=== PATIENT | male | born 1975 | race Caucasian/White ===

== ENCOUNTER 2017-03-17 00:51 | Emergency (ER) | payer BC ==
--- NOTE | 2017-03-17 01:05 | Emergency Department Record ---
History of Present Illness - General Chief Complaint: Fall Injury Stated Complaint: FELL DISLOCATED SHOULDER Source: Patient Mode of Arrival: Ambulatory Limitations: No limitations - History of Present Illness Initial Comments: 41 yo male presents to ED following a fall with injury to the right shoulder prior to arrival. Patient reports a direct blow to the right shoulder during the fall, denies other injury, and denies health problems at his baseline. Patient denies numbness, tingling, or [place] strength weakness on examination. Patient does not take blood thinner medications. MD Complaint: Fall Onset/Timin -: Hour(s) Fall From: Standing When Fall Occurred: 1 hour [employer] Fall Witnessed: Yes, by family Place Fall Occurred: Home Loss of Consciousness: None Prolonged Down Time?: No Symptoms Prior to Fall: None Location - Extremities: Right: Shoulder Severity: Moderate Quality: Aching Context: Alcohol use Associated Symptoms: Denies - Aneta Coma Scale Eye Response: (4) Open spontaneously Motor Response: (6) Obeys commands Verbal Response: (5) Oriented [place] Total: 15 - Related Data Home Medications Medication Instructions Recorded Confirmed Last Taken Duloxetine HCl [Cymbalta] 60 mg PO BID 03/17/17 03/17/17 Unknown Previous Rx's Medication Instructions Recorded Hydrocodone/Acetaminophen [Reform 1 tab PO Q6H PRN #15 tab 03/17/17 5mg/325mg] Allergies Allergy/AdvReac Type Severity Reaction Status Date / Time No Known Drug Allergies Allergy Verified 03/17/17 00:59 Review of Systems Constitutional: Denies: Chills, Fever, Malaise, Night sweats Eyes: Denies: Eye discharge, Eye pain ENT: Denies: Congestion, Ear pain, Epistaxis Respiratory: Denies: Cough, Dyspnea Cardiovascular: Denies: Chest pain, Dyspnea on exertion Endocrine: Denies: Fatigue, Heat or cold intolerance Gastrointestinal: Denies: Abdominal pain, Nausea, Vomiting Genitourinary: Denies: Incontinence, Retention Musculoskeletal: Reports: Arthralgia, Joint swelling. Denies: Back pain, Gout Skin: Denies: Bruising, Change in color, Change in hair/nails Neurological: Denies: Abnormal gait, Confusion, Headache, Seizure Psychiatric: Denies: Anxiety Hematological/Lymphatic: Denies: Anemia Physical Exam - General General Appearance: Alert, Oriented x3, Cooperative, Other (Mild alcohol intoxication on exam) Limitations: No limitations - Head Head exam: Atraumatic, Normocephalic, Normal inspection Head exam detail: negative: Abrasion, Contusion, Gordon's sign, General tenderness, Hematoma, Laceration - Eye Eye exam: Normal appearance. negative: Conjunctival injection, Periorbital swelling, Periorbital tenderness, Scleral icterus - ENT Ear exam: negative: Auricular hematoma, Auricular trauma Nasal Exam: negative: Active bleeding, Discharge, Dried blood, Foreign body Mouth exam: negative: Drooling, Laceration, Muffled voice, Tongue elevation - Neck Neck exam: Normal inspection. negative: Meningismus, Tenderness - Respiratory Respiratory exam: Normal lung sounds bilaterally. negative: Rales, Respiratory distress, Rhonchi, Stridor - Cardiovascular Cardiovascular Exam: Regular rate, Normal rhythm, Normal heart sounds - GI/Abdominal GI/Abdominal exam: Soft. negative: Rebound, Rigid, Tenderness - Rectal Rectal exam: Deferred - exam: Deferred - Extremities Extremities exam: Tenderness, Other (TTP to the right shoulder on examination, findings are c/w AC separation on exam, no deformity c/w dislocation on examination). negative: Calf tenderness, Pedal edema - Back Back exam: Denies: CVA tenderness (R), CVA tenderness (L) - Neurological Neurological exam: Alert, Normal gait, Oriented X3 - Psychiatric Psychiatric exam: Normal affect, Normal mood - Skin Skin exam: Normal color. negative: Abrasion Type of lesion: negative: abrasion Course Vital Signs 03/17/17 00:56 Temperature 98.3 F Pulse Rate [ 103 H Pulse Ox Probe] Respiratory 24 Rate Blood Pressure 111/78 [Left Arm] Pulse Ox 97 - Reevaluation(s) Reevaluation #1: 03/17/17 01:18 Right shoulder: AC separation right, no dislocation present. Patient was updated on all results, will sling, provide analgesia, and refer to his orthopedist (Dr. Swartz) for follow-up. Patient appears stable for discharge at this time. Disposition Disposition: Discharge Clinical Impression: AC separation, type 3 Qualifiers: Encounter type: initial encounter Laterality: right Qualified Code(s): S43.101A - Unspecified dislocation of right acromioclavicular joint, initial encounter Disposition: Home, Self-Care Condition: (2) Stable Instructions: Acromioclavicular Separation (ED) Additional Instructions: Return to ED if your symptoms worsen or if you have any concerns. Follow-up with Dr. Swartz in 3-5 days as directed. Sling as needed. Motrin and Reform as needed for pain symptoms. Prescriptions: Hydrocodone/Acetaminophen [Reform 5mg/325mg] 1 tab PO Q6H PRN #15 tab PRN Reason: Pain - General Forms: Patient Portal Access Time of Disposition: 01:21
[2017-03-17] MEDS ORDERED: HYDROCODONE/APAP 5/325MG TABLET PO ONE (01:22)
[2017-03-17] MEDS ORDERED: IBUPROFEN 400 MG TABLET PO ONE (01:22)
--- NOTE | 2017-03-19 16:15 | RADIOLOGY REPORT ---
EXAM: SHOULDER, RIGHT HISTORY: FALL, RIGHT SHOULDER INJURY AND PAIN. TECHNIQUE: [place], right shoulder. COMPARISON: None. ENCOUNTER: Initial. FINDINGS: There is gross widening and malalignment of the right AC joint, which measures 10 mm in width. Increased coracoclavicular distance measuring 26 mm. No acute fracture. IMPRESSION: ACUTE GRADE 3 RIGHT AC JOINT INJURY. NO FRACTURE IS IDENTIFIED. JOB NUMBER: [id number] MTDD
== END 2017-03-17 01:45 | disposition home or self-care (01) ==
LOC: ER 00:51
DX: S43.101A Unspecified dislocation of right acromioclavicular joint, initial encounter (principal); W17.89XA Other fall from one level to another, initial encounter; Y93.02 Activity, running; Y92.9 Unspecified place or not applicable; Y99.9 Unspecified external cause status
CPT/HCPCS: 99283

== ENCOUNTER 2018-03-09 10:30 | Emergency (ER) | payer BC ==
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
--- NOTE | 2018-03-11 14:18 | RADIOLOGY REPORT ---
EXAM: LEFT KNEE HISTORY: PAIN. TECHNIQUE: Four views of the left knee were obtained. Comparison: None. Encounter: Initial. FINDINGS: Advanced tricompartmental degenerative change with tricompartmental narrowing and spur formation. Probable small joint effusion. No evidence for an acute fracture or dislocation. Suspected loose bodies near the midline of the knee. IMPRESSION: ADVANCED DEGENERATIVE CHANGE WITH PROBABLE SMALL JOINT EFFUSION. SUSPECTED LOOSE BODY FORMATION. JOB NUMBER: [id number] MTDD
== END 2018-03-09 13:41 | disposition home or self-care (01) ==
LOC: ER 10:30
DX: S86.912A Strain of unspecified muscle(s) and tendon(s) at lower leg level, left leg, initial encounter (principal); M25.462 Effusion, left knee; V86.56XA Driver of dirt bike or motor/cross bike injured in nontraffic accident, initial encounter; Y92.009 Unspecified place in unspecified non-institutional (private) residence as the place of occurrence of the external cause
CPT/HCPCS: 99283